=== PATIENT | female | born 1960 | race Caucasian/White ===

== ENCOUNTER → 2024-02-29 08:40 | Outpatient (REF) | payer OTHER, SELFPAY | LOC: HWWDC 08:40 | PROVIDERS: ATTENDING PHYSICIAN Nurse Practitioner Adult Health | DX: Z12.31 Encounter for screening mammogram for malignant neoplasm of breast (principal) | CPT/HCPCS: 77063; 77067 ==

== ENCOUNTER 2024-10-02 06:22 | Day surgery (SDC) | payer MEDICARE, OTHER, SELFPAY | END 2024-10-02 14:36 | disposition home or self-care (01) | LOC: GI 06:22 | PROVIDERS: ATTENDING PHYSICIAN Specialist | DX: Z12.11 Encounter for screening for malignant neoplasm of colon (principal); K57.30 Diverticulosis of large intestine without perforation or abscess without bleeding; K64.8 Other hemorrhoids; Z86.0100 Personal history of colon polyps, unspecified | CPT/HCPCS: G0105 ==

== ENCOUNTER → 2025-01-27 08:28 | Outpatient (REF) | payer MEDICARE, OTHER, SELFPAY | LOC: RAD 08:28 | PROVIDERS: ATTENDING PHYSICIAN Nurse Practitioner Adult Health | DX: Z78.0 Asymptomatic menopausal state (principal); Z82.49 Family history of ischemic heart disease and other diseases of the circulatory system | CPT/HCPCS: 76770; 77080 ==

== ENCOUNTER → 2025-03-10 10:57 | Outpatient (REF) | payer MEDICARE, OTHER, SELFPAY | LOC: HWWDC 10:57 | PROVIDERS: ATTENDING PHYSICIAN Nurse Practitioner Adult Health | DX: Z12.31 Encounter for screening mammogram for malignant neoplasm of breast (principal) | CPT/HCPCS: 77063; 77067 ==